=== PATIENT | male | born 1960 | race Caucasian/White ===

== ENCOUNTER 2018-04-25 09:39 | Day surgery (SDC) | payer OTHER ==
[2018-04-25] MEDS ORDERED: MIDAZOLAM 1 MG/ML 2 ML INJ ×2 (12:54)
[2018-04-25] MEDS ORDERED: FENTAnyl 50 MCG/ML VIAL (12:55)
== END 2018-04-25 15:37 | disposition home or self-care (01) ==
LOC: GIL 09:39
DX: R19.4 Change in bowel habit (principal); K51.90 Ulcerative colitis, unspecified, without complications; K64.4 Residual hemorrhoidal skin tags; D12.6 Benign neoplasm of colon, unspecified; K57.90 Diverticulosis of intestine, part unspecified, without perforation or abscess without bleeding
CPT/HCPCS: 45380; 88305